=== PATIENT | female | born 1995 | race Caucasian/White ===

== ENCOUNTER 2023-05-22 17:06 | Observation (INO) | payer OTHER, SELFPAY ==
[2023-05-22 17:34] VITALS: BMI 30.1
[2023-05-22 17:35] VITALS: BP 92/48
[2023-05-22 17:54] LABS: Urine Albumin Trace (Neg - Trace); Urine Bilirubin Negative (Negative); Urine Character Slightly Cloudy (Clear); Urine Color Yellow; Urine Glucose Negative (Negative); Urine Ketone Negative (Negative); Urine Leukocyte 2+ (Negative); Urine Nitrite Negative (Negative); Urine Occult Blood Negative (Negative); Urine Specific Gravity 1.015 (<1.030); Urine Urobilinogen Negative (Neg - 1+)
[2023-05-22 17:59] LABS: % Basophils 0.2 % (0-2); % Eosinophils 1.5 % (0-6); % Immature Granulocytes 1.1 % (0-0.5); % Lymphocytes 15.8 % (20.5-51.1); % Monocytes 8.9 % (1.7-9.3); % Neutrophils 72.5 % (42.2-75.2); Absolute Eosinophils 0.2 10^3/uL (0-0.7); Absolute Immature Granulocytes 0.1 10^3/uL (0-0.05); Absolute Monocytes 1.1 10^3/uL (0.1-0.6); Hematocrit 28.1 % (37.0-47.0); Hemoglobin 9.8 g/dL (12.0-16.0); Mean Corp Hgb Conc. 34.9 g/dL (33.0-37.0); Mean Corpuscular Hgb 29.9 pg (27.0-31.0); Mean Corpuscular Volume 85.7 fL (81.0-99.0); Mean Platelet Volume 9.3 fL (7.4-10.4); Nucleated Red Blood Cells % 0 %; Platelet Count 254 10^3/uL (130-400); Red Blood Cell Count 3.28 10^6/uL (4.20-5.40); Red Cell Dist. Width 13.2 % (11.5-14.5); White Blood Cell Count 12.4 10^3/uL (4.8-10.8)
[2023-05-22 18:03] LABS: Urine Squamous Cell >30 /LPF (Few)
[2023-05-22 18:04] LABS: Urine Bacteria Few (Negative); Urine Red Blood Cell 0-2 /HPF (0-2)
[2023-05-22 18:38] LABS: ALT (SGPT) 15 U/L (0-35); AST (SGOT) 25 U/L (14-36); Albumin 3.3 g/dl (3.5-5.0); Alkaline Phosphatase 83 U/L (38-126); Blood Urea Nitrogen 11 mg/dl (7-17); Calcium 8.6 mg/dl (8.4-10.2); Carbon Dioxide 24 mmol/L (22-30); Chloride 106 mmol/L (98-107); Estimated Creatinine Clearance > 125 ml/min; Glucose 69 mg/dl (70-99); Potassium 3.9 mmol/L (3.5-5.1); Sodium 133 mmol/L (135-145); Total Bilirubin 0.4 mg/dl (0.2-1.3); Uric Acid 4.9 mg/dl (2.5-6.2); eGFR > 60.00
[2023-05-22 19:08] LABS: Protein/creatinine Ratio 0.2; Urine Protein 14 mg/dl
== END 2023-05-22 19:46 | disposition home or self-care (01) ==
LOC: LDRP 17:06
PROVIDERS: ADMITTING PHYSICIAN Obstetrics & Gynecology
DX: R51.9 Headache, unspecified (principal); R60.9 Edema, unspecified; J45.909 Unspecified asthma, uncomplicated; O99.513 Diseases of the respiratory system complicating pregnancy, third trimester; Z3A.32 32 weeks gestation of pregnancy; Z88.0 Allergy status to penicillin; Z88.2 Allergy status to sulfonamides
CPT/HCPCS: 80053; 81003; 81015; 82570; 84156; 84550; 85025; 86850; 86900; 86901; G0378

== ENCOUNTER 2023-06-10 15:01 | Observation (INO) | payer OTHER, SELFPAY ==
[2023-06-10 15:18] VITALS: BP 127/53; BMI 30.1
[2023-06-10 17:54] LABS: Urine Albumin Negative (Neg - Trace); Urine Bilirubin Negative (Negative); Urine Character Clear (Clear); Urine Color Yellow; Urine Glucose Negative (Negative); Urine Ketone Negative (Negative); Urine Leukocyte Trace (Negative); Urine Nitrite Negative (Negative); Urine Occult Blood Negative (Negative); Urine Specific Gravity 1.015 (<1.030); Urine Urobilinogen Negative (Neg - 1+)
[2023-06-10 17:55] LABS: % Basophils 0.2 % (0-2); % Eosinophils 0.9 % (0-6); % Immature Granulocytes 1.2 % (0-0.5); % Monocytes 9.2 % (1.7-9.3); % Neutrophils 74.5 % (42.2-75.2); Absolute Eosinophils 0.1 10^3/uL (0-0.7); Absolute Immature Granulocytes 0.2 10^3/uL (0-0.05); Absolute Lymphocytes 1.8 10^3/uL (1.2-3.4); Absolute Monocytes 1.2 10^3/uL (0.1-0.6); Absolute Neutrophils 9.6 10^3/uL (1.4-6.5); Hematocrit 28.5 % (37.0-47.0); Mean Corp Hgb Conc. 35.1 g/dL (33.0-37.0); Mean Corpuscular Hgb 29.5 pg (27.0-31.0); Mean Corpuscular Volume 84.1 fL (81.0-99.0); Nucleated Red Blood Cells % 0 %; Red Blood Cell Count 3.39 10^6/uL (4.20-5.40); Red Cell Dist. Width 13.2 % (11.5-14.5); White Blood Cell Count 12.9 10^3/uL (4.8-10.8)
[2023-06-10 18:08] LABS: Urine Amorphous Seen; Urine Bacteria Few (Negative); Urine Mucus Few; Urine Red Blood Cell 0-2 /HPF (0-2)
[2023-06-10] MEDS: MACROBID 100 MG PO (20:13)
[2023-06-10] MEDS: NORMOSOL-R 1000 IV (20:13)
[2023-06-10 20:24] LABS: ALT (SGPT) 14 U/L (0-35); AST (SGOT) 22 U/L (14-36); Albumin 3.4 g/dl (3.5-5.0); Alkaline Phosphatase 113 U/L (38-126); Blood Urea Nitrogen 9 mg/dl (7-17); Calcium 9.8 mg/dl (8.4-10.2); Carbon Dioxide 20 mmol/L (22-30); Chloride 107 mmol/L (98-107); Estimated Creatinine Clearance > 125 ml/min; Glucose 91 mg/dl (70-99); Potassium 3.4 mmol/L (3.5-5.1); Sodium 133 mmol/L (135-145); Total Bilirubin 0.3 mg/dl (0.2-1.3); Total Protein 6.2 g/dl (6.3-8.2); eGFR > 60.00
== END 2023-06-10 21:18 | disposition home or self-care (01) ==
LOC: LDRP 15:01
PROVIDERS: ADMITTING PHYSICIAN Obstetrics & Gynecology
DX: O26.853 Spotting complicating pregnancy, third trimester (principal); O26.893 Other specified pregnancy related conditions, third trimester; R10.9 Unspecified abdominal pain; Z3A.35 35 weeks gestation of pregnancy
CPT/HCPCS: 76770; 80053; 81003; 81015; 85025; 87086; G0378

== ENCOUNTER 2023-06-18 17:22 | Observation (INO) | payer OTHER, SELFPAY ==
[2023-06-18 17:43] VITALS: BP 123/72; BMI 31.2
[2023-06-18 18:36] LABS: Urine Albumin Negative (Neg - Trace); Urine Bilirubin Negative (Negative); Urine Character Clear (Clear); Urine Color Yellow; Urine Glucose Negative (Negative); Urine Ketone Trace (Negative); Urine Leukocyte 1+ (Negative); Urine Nitrite Negative (Negative); Urine Occult Blood Negative (Negative); Urine Urobilinogen Negative (Neg - 1+)
[2023-06-18 18:44] LABS: Urine Red Blood Cell None Seen /HPF (0-2); Urine Squamous Cell >30 /LPF (Few)
[2023-06-18 18:50] LABS: ALT (SGPT) 14 U/L (0-35); AST (SGOT) 28 U/L (14-36); Albumin 3.8 g/dl (3.5-5.0); Alkaline Phosphatase 119 U/L (38-126); Blood Urea Nitrogen 12 mg/dl (7-17); Calcium 9.1 mg/dl (8.4-10.2); Carbon Dioxide 20 mmol/L (22-30); Chloride 105 mmol/L (98-107); Estimated Creatinine Clearance > 125 ml/min; Glucose 86 mg/dl (70-99); Potassium 4.2 mmol/L (3.5-5.1); Sodium 133 mmol/L (135-145); Total Bilirubin 0.4 mg/dl (0.2-1.3); Total Protein 6.8 g/dl (6.3-8.2); eGFR > 60.00
[2023-06-18 18:55] LABS: Hematocrit 30.8 % (37.0-47.0); Hemoglobin 10.5 g/dL (12.0-16.0); Mean Corp Hgb Conc. 34.1 g/dL (33.0-37.0); Mean Corpuscular Hgb 29.2 pg (27.0-31.0); Mean Corpuscular Volume 85.6 fL (81.0-99.0); Platelet Count 255 10^3/uL (130-400); Red Cell Dist. Width 13.6 % (11.5-14.5); White Blood Cell Count 13.7 10^3/uL (4.8-10.8)
[2023-06-18 19:00] LABS: Protein/creatinine Ratio 0.1; Urine Protein 12 mg/dl
== END 2023-06-18 19:45 | disposition home or self-care (01) ==
LOC: LDRP 17:22
PROVIDERS: ADMITTING PHYSICIAN Obstetrics & Gynecology; FAMILY PHYSICIAN Obstetrics & Gynecology
DX: H53.8 Other visual disturbances (principal); N80.9 Endometriosis, unspecified; Z3A.36 36 weeks gestation of pregnancy; J45.909 Unspecified asthma, uncomplicated; R60.0 Localized edema; O99.513 Diseases of the respiratory system complicating pregnancy, third trimester; O99.353 Diseases of the nervous system complicating pregnancy, third trimester; G43.909 Migraine, unspecified, not intractable, without status migrainosus; J30.2 Other seasonal allergic rhinitis; Z88.0 Allergy status to penicillin; Z88.2 Allergy status to sulfonamides; Z91.040 Latex allergy status; Z87.442 Personal history of urinary calculi
CPT/HCPCS: 80053; 81003; 81015; 82570; 84156; 85027; 86850; 86900; 86901; G0378

== ENCOUNTER 2023-06-24 06:46 | Observation (INO) | payer OTHER, SELFPAY ==
[2023-06-24 07:02] VITALS: BP 123/62; BMI 31.2
== END 2023-06-24 08:05 | disposition home or self-care (01) ==
LOC: LDRP 06:46
PROVIDERS: ADMITTING PHYSICIAN Obstetrics & Gynecology; ATTENDING PHYSICIAN Obstetrics & Gynecology
DX: O47.1 False labor at or after 37 completed weeks of gestation (principal); Z3A.37 37 weeks gestation of pregnancy; Z88.0 Allergy status to penicillin; Z88.2 Allergy status to sulfonamides; Z91.040 Latex allergy status; Z87.442 Personal history of urinary calculi
CPT/HCPCS: G0378

== ENCOUNTER 2023-07-14 19:04 | Inpatient (IN) | payer OTHER, SELFPAY ==
[2023-07-14 19:44] VITALS: BP 125/71; BMI 31.9
[2023-07-14 21:07] LABS: % Basophils 0.2 % (0-2); % Immature Granulocytes 0.7 % (0-0.5); % Lymphocytes 17.3 % (20.5-51.1); % Monocytes 7.5 % (1.7-9.3); % Neutrophils 73.3 % (42.2-75.2); Absolute Eosinophils 0.1 10^3/uL (0-0.7); Absolute Immature Granulocytes 0.1 10^3/uL (0-0.05); Absolute Lymphocytes 2.1 10^3/uL (1.2-3.4); Absolute Monocytes 0.9 10^3/uL (0.1-0.6); Absolute Neutrophils 8.8 10^3/uL (1.4-6.5); Hematocrit 32.6 % (37.0-47.0); Hemoglobin 11.2 g/dL (12.0-16.0); Mean Corp Hgb Conc. 34.4 g/dL (33.0-37.0); Mean Corpuscular Hgb 29.4 pg (27.0-31.0); Mean Corpuscular Volume 85.6 fL (81.0-99.0); Mean Platelet Volume 9.8 fL (7.4-10.4); Nucleated Red Blood Cells % 0 %; Platelet Count 242 10^3/uL (130-400); Red Blood Cell Count 3.81 10^6/uL (4.20-5.40); Red Cell Dist. Width 14.1 % (11.5-14.5)
[2023-07-14] MEDS: CYTOTEC 25 MICROGRAM VAG (21:48)
[2023-07-15] MEDS: LR 1000 IV ×3 (02:09→11:50)
[2023-07-15] MEDS: PHENERGAN 50.5 MG IV (03:35)
[2023-07-15] MEDS: MORPHINE SULFATE 2 MG IV (03:35)
[2023-07-15] MEDS: SUBLIMAZE 100 MCG EPIDURAL (04:18)
[2023-07-15] MEDS: FENTANYL/BUPIVACAINE 100 EPIDURAL ×3 (04:18→19:55)
[2023-07-15] MEDS: PITOCIN 30 UNITS/NSS 500 ML IV (15:45)
[2023-07-16] MEDS: PITOCIN 30 UNITS/NSS 500 ML IV (01:09)
[2023-07-16] MEDS: MOTRIN 600 MG PO ×3 (03:26→17:31)
[2023-07-16] MEDS: ZYRTEC 10 MG PO (07:56)
[2023-07-16] MEDS: SENOKOT-S 1 TABLET PO (07:56)
[2023-07-16] MEDS: TYLENOL 650 MG PO ×3 (07:56→17:28)
[2023-07-16] MEDS: PRENATAL PLUS 1 TABLET PO (07:56)
[2023-07-17] MEDS: MOTRIN 600 MG PO ×4 (00:32→22:14)
[2023-07-17 05:22] LABS: Hematocrit 24.6 % (37.0-47.0); Hemoglobin 8.2 g/dL (12.0-16.0)
[2023-07-17] MEDS: TYLENOL 650 MG PO ×2 (06:22→13:39)
[2023-07-17] MEDS: SENOKOT-S 1 TABLET PO (09:28)
[2023-07-17] MEDS: PRENATAL PLUS 1 TABLET PO (09:28)
[2023-07-17] MEDS: ZYRTEC 10 MG PO (09:28)
[2023-07-17 14:53] LABS: Syphilis/T. pallidum Ab Reflex Negative (Negative)
[2023-07-17] MEDS: FEOSOL 325 MG PO (20:03)
[2023-07-18] MEDS: MOTRIN 600 MG PO ×2 (05:00→11:14)
[2023-07-18] MEDS: ZYRTEC 10 MG PO (09:30)
[2023-07-18] MEDS: SENOKOT-S 1 TABLET PO (09:30)
[2023-07-18] MEDS: PRENATAL PLUS 1 TABLET PO (09:30)
[2023-07-18] MEDS: FEOSOL 325 MG PO (09:30)
== END 2023-07-18 13:00 | disposition home or self-care (01) | DRG 768 ==
LOC: LDRP 19:04
PROVIDERS: Obstetrics & Gynecology; ADMITTING PHYSICIAN Obstetrics & Gynecology
PROC: 3E0P7VZ Introduction of Hormone into Female Reproductive, Via Natural or Artificial Opening (ICD-10-PCS; 2023-07-14)
PROC: 0DQR0ZZ Repair Anal Sphincter, Open Approach (ICD-10-PCS; 2023-07-16)
PROC: 10E0XZZ Delivery of Products of Conception, External Approach (ICD-10-PCS; 2023-07-16)
DX: O48.0 Post-term pregnancy (principal); Z37.0 Single live birth; O70.20 Third degree perineal laceration during delivery, unspecified; Z3A.40 40 weeks gestation of pregnancy; Z91.040 Latex allergy status; Z88.0 Allergy status to penicillin; Z88.2 Allergy status to sulfonamides; Z91.048 Other nonmedicinal substance allergy status; N80.9 Endometriosis, unspecified; Z87.442 Personal history of urinary calculi; J45.909 Unspecified asthma, uncomplicated; O99.52 Diseases of the respiratory system complicating childbirth; G43.909 Migraine, unspecified, not intractable, without status migrainosus; O99.02 Anemia complicating childbirth; D64.9 Anemia, unspecified; O42.02 Full-term premature rupture of membranes, onset of labor within 24 hours of rupture; O66.0 Obstructed labor due to shoulder dystocia
CPT/HCPCS: 88307; 85014; 85018; 85025; 86780; 86850; 86900; 86901

== ENCOUNTER → 2023-08-24 16:54 | Outpatient (REF) | payer OTHER, SELFPAY | LOC: REG 16:54 | PROVIDERS: ATTENDING PHYSICIAN Obstetrics & Gynecology | DX: A04.72 Enterocolitis due to Clostridium difficile, not specified as recurrent (principal) | CPT/HCPCS: 87324; 87449 ==

== ENCOUNTER 2023-09-23 14:08 | Day surgery (SDC) | payer OTHER, SELFPAY ==
[2023-09-23 13:50] VITALS: BMI 27.1
[2023-09-23 13:51] VITALS: BP 112/50
[2023-09-23 15:45] VITALS: BP 102/53
[2023-09-23 16:00] VITALS: BP 112/62
[2023-09-23 16:15] VITALS: BP 108/64
== END 2023-09-23 16:25 | disposition home or self-care (01) ==
LOC: GI 14:08
PROVIDERS: ATTENDING PHYSICIAN Surgery
DX: K62.89 Other specified diseases of anus and rectum (principal); R15.9 Full incontinence of feces
CPT/HCPCS: 45330

== ENCOUNTER 2023-09-29 06:13 | Day surgery (SDC) | payer OTHER, SELFPAY ==
[2023-09-29] VITALS (13 sets, daily range): BP systolic 92–113; BP diastolic 44–62; BMI 27.1; BMI 27.3
[2023-09-29] MEDS: NORMOSOL-R 1000 IV ×4 (07:05→18:14)
[2023-09-29] MEDS: ZOFRAN 4 MG IV (09:17)
[2023-09-29] MEDS: DILAUDID 0.5 MG IV ×2 (09:21→11:45)
--- NOTE | 2023-09-29 09:21 | W.SUR.POST ---
Surgical Immediate Post Op
Note
Pre Op Diagnosis:
1. Fecal incontinence
2. 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
3. wound infection
4. Rectocele
Post Op Diagnosis:
1. Fecal incontinence
2. 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
3. wound infection
4. Rectocele
Procedure Performed: Sphincteroplasty, posterior colporrhaphy, perineoplasty
Primary Surgeon: Williams Pérez MD
Secondary Surgeons: Emmanuel Felipe MD
Anesthesia: General anesthesia with ET tube
Estimated Blood Loss: 200 cc
Complications: None
--- NOTE | 2023-09-29 09:25 | OR.RPT ---
Operative Report
Operative Report
PREOPERATIVE DIAGNOSIS:
1.�Fecal Incontinence
2. History of obstetric anal sphincter injury (3rd degree perineal laceration)
3. Perineal wound infection and breakdown
4. Rectocele
POSTOPERATIVE DIAGNOSIS:
1.�Fecal Incontinence
2. History of obstetric anal sphincter injury (3rd degree perineal laceration)
3. Perineal wound infection and breakdown
4. Rectocele
PROCEDURE:
1. Sphincteroplasty
2. Posterior colporrhaphy with perineoplasty
ASSISTANTS:� Emmanuel Felipe MD
ANESTHESIA:� General anesthesia
ESTIMATED BLOOD LOSS:� 200 cc
SPECIMENS:� None
COMPLICATIONS:� None
FINDINGS:� Vaginal and rectal exam confirmed minimal perineal body with large anterior external anal sphincter defect
INDICATIONS:� Patient is a 28 yo woman with a 3rd degree perineal laceration from obstretric truama. She developed a wound infection and treated with oral antibiotics. Subsequently developed solid and loose stool fecal incontinence. Patient is
bothered by her symptoms and desires surgery. Endoanal ultrasound confirmed a 90 degree defect in the external anal sphincter.
PROCEDURE:� On the day of surgery the patient was identified in the preoperative waiting area.� Consents were again reviewed.� The patient was then taken to the operating room.� Pneumatic compression devices were placed on her lower extremities
bilaterally for DVT prophylaxis.� Gentamicin 100mg, Clindamycin 900mg and metronidazole 500mg IV was given for antibiotic prophylaxis.� General anesthesia was induced without difficulty.� Time out was taken to identify the patient and procedure.�
The patient was placed in the dorsal lithotomy position and prepped and draped in the usual fashion.� Yee catheter was placed in the bladder to drain it.
The posterior vaginal mucosa and perineum skin were infiltrated with 1% lidocaine with 1:100,000 epinephrine. A transverse perineal skin incision was
mad with a scalpel. The posterior vaginal mucosa was then opened up in the midline, going from the introitus toward the apex using Metzenbaum scissors.� The posterior vaginal mucosa was then dissected off the underlying rectovaginal fascia
bilaterally out to the level of the lateral sulci. The Allis clamp was used to grasp the right end of the external anal sphincter which was confirmed with palpation. The scissors were used to dissect the EAS capsule free from the underlying
connective tissue. Adequate mobility of the sphincter was confirmed. This was repeated on the left side to allow for a 2 cm region of overlapping sphincter. Next, the #2-0 PDS in four vertical mattress sutures were used to complete the
sphincteroplasty. Irrigation with normal saline was completed. The apical edge of the rectovaginal fascia was identified and plicated in the midline in three layers from deep to superficial with #2-0 PDS.�Interrupted suture of #2-0 PDS were also
used to plicate the transverse peritoneal and bulbospongiosus muscles in the midline to reconstruct the perineal body.� Excess vaginal mucosa was trimmed.� The vaginal mucosa was approximated with #2-0 Vicryl in a running fashion.� The perineal body
was superficially reconstructed with #2-0 Vicryl in interrupted fashion. The mucosa of the perineum was reapproximated with #2-0 Vicryl in interrupted fashion. Rectal exam revealed no stitches. Vaginal packing was placed.
Sponge, lap and needle counts were correct x 2.� I, Dr. Pérez was scrubbed and present throughout the procedure.� The patient was awaked and sent to the PACU in stable condition.
[2023-09-29] MEDS: BENADRYL 25 MG IV (10:01)
[2023-09-29] MEDS: TORADOL 15 MG IV ×3 (10:06→22:00)
--- NOTE | 2023-09-29 15:25 | CM ---
Met with pt at bedside
Lives with her and 2 month old son in an apartment
Independent, cares for son, driving
DME - none
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
Has ride at d/c
PCP - Dr Nakia Ragsdale
Pharm - [facility]
CM will follow for d/c needs
Plan - anticipate home no needs
[2023-09-29] MEDS: ROXICODONE 5 MG PO (16:48)
[2023-09-29] MEDS: TYLENOL 650 MG PO ×2 (18:06→22:27)
[2023-09-29] MEDS: FLAGYL 500 MG PO (20:01)
[2023-09-29] MEDS: COLACE 100 MG PO (20:01)
[2023-09-29] MEDS: MYLICON 80 MG PO (20:01)
[2023-09-30] MEDS: NORMOSOL-R 1000 IV (01:07)
[2023-09-30] MEDS: TORADOL 15 MG IV (03:56)
[2023-09-30 04:02] VITALS: BP 100/50
[2023-09-30] MEDS: ROXICODONE 5 MG PO (04:17)
[2023-09-30 06:06] LABS: Hematocrit 29.4 % (37.0-47.0); Mean Corpuscular Hgb 27.3 pg (27.0-31.0); Mean Corpuscular Volume 80.3 fL (81.0-99.0); Mean Platelet Volume 9.3 fL (7.4-10.4); Platelet Count 302 10^3/uL (130-400); Red Blood Cell Count 3.66 10^6/uL (4.20-5.40); Red Cell Dist. Width 12.3 % (11.5-14.5); White Blood Cell Count 10.1 10^3/uL (4.8-10.8)
--- NOTE | 2023-09-30 06:26 | PTCARENOTE ---
RN removed todd and vaginal packing at 0500 09/30/23.
[2023-09-30 06:35] LABS: Blood Urea Nitrogen 12 mg/dl (7-17); Carbon Dioxide 24 mmol/L (22-30); Chloride 108 mmol/L (98-107); Estimated Creatinine Clearance 112 ml/min; Potassium 4.1 mmol/L (3.5-5.1); Sodium 138 mmol/L (135-145)
[2023-09-30 07:52] VITALS: BP 83/54
[2023-09-30] MEDS: FLAGYL 500 MG PO (08:20)
[2023-09-30] MEDS: COLACE 100 MG PO (08:20)
[2023-09-30] MEDS: ZYRTEC 10 MG PO (08:20)
--- NOTE | 2023-09-30 09:00 | W.PN.CRS1 ---
Today's Communication / Plan
-
Void trial
Bowel regimen
Likely DC today
Assessment/Plan
-
POD 1 overlapping sphincteroplasty with perineoplasty by Dr. Pérez
AFVSS
WBC 10.1, Hb 10.0
�Continue regular diet
� Continue pain control with Tylenol, oxycodone, Dilaudid as needed
� Continue Colace twice daily, MiraLAX as needed (instructed patient to take MiraLAX if no BMs in 24 hours)
� Yee removed this a.m., monitor for void
� Care per Dr. Pérez, likely DC today
Subjective Data
Subjective Data
Date of Service: September 30, 2023
No overnight events.
Pain controlled.
Denies nausea/vomiting. Tolerating diet.
+flatus -BMs -void, on void trial
Pt is OOB.
Objective Data
-
Vital Signs
Temp Pulse Resp BP Pulse Ox
97.5 F 55 16 83/54 99
09/30/23 07:52 09/30/23 07:52 09/30/23 07:52 09/30/23 07:52 09/30/23 04:02
Intake & Output
09/29/23 09/30/23 10/01/23
06:59 06:59 06:59
Intake Total 3658 / 3658
Output Total 6435 / 2775
Balance 883 / 883
Intake:
Oral fluids 282 / 282
Amount of oral supplement(s) 120 / 120
consumed
IV fluids (Total) 3256 / 3256
Normosol 500 / 500
Output:
Urine, Yee 1457 / 2775
Lab Results
09/30/23 05:49
09/30/23 05:49
Physical Exam
-
General: No Acute Distress and AOx3
HEENT: Grossly Normal
Abdomen: Soft, Non Distended, Non Tender, No Guarding and No Rebound
Skin: Warm and Dry
--- NOTE | 2023-09-30 09:11 | PTCARENOTE ---
Received pt AAOx3 lungs clear apical regular 66bpm abdominal soft nontender BSX4, INT D/I Dr. Pérez in room and examined vaginal area. Positive Pedal pulses x4. Pt oob voided 400ml clear yellow urine. Suzie Pads changed. Pt offers no complaints at
this time,pt eating breakfast.
[2023-09-30] MEDS: TYLENOL 650 MG PO (10:01)
--- NOTE | 2023-09-30 10:04 | PTCARENOTE ---
BP 111/52 pulse 62, INT D/C catheter intact, pt discharged via wheelchair
== END 2023-09-30 10:10 | disposition home or self-care (01) ==
LOC: SDS 06:13
PROVIDERS: ATTENDING PHYSICIAN Obstetrics & Gynecology
DX: O86.01 Infection of obstetric surgical wound, superficial incisional site (principal); R15.9 Full incontinence of feces; N81.6 Rectocele
CPT/HCPCS: 57250; 46750; 80051; 82565; 84520; 85027; J1580

== ENCOUNTER → 2023-10-05 16:54 | Outpatient (REF) | payer OTHER, SELFPAY | LOC: REG 16:54 | PROVIDERS: ATTENDING PHYSICIAN Obstetrics & Gynecology | DX: A04.72 Enterocolitis due to Clostridium difficile, not specified as recurrent (principal) | CPT/HCPCS: 87324; 87449 ==

== ENCOUNTER → 2023-10-27 09:35 | Outpatient (REF) | payer OTHER, SELFPAY | LOC: REG 09:35 | PROVIDERS: ATTENDING PHYSICIAN Obstetrics & Gynecology | DX: N39.0 Urinary tract infection, site not specified (principal); A04.72 Enterocolitis due to Clostridium difficile, not specified as recurrent | CPT/HCPCS: 87086; 87324; 87449 ==

== ENCOUNTER 2023-12-01 15:31 | Outpatient (RCR) | payer OTHER, SELFPAY | END 2023-12-01 23:59 | disposition home or self-care (01) | LOC: RPT 15:31 | PROVIDERS: ATTENDING PHYSICIAN Obstetrics & Gynecology | DX: R10.2 Pelvic and perineal pain (principal); R15.2 Fecal urgency; M62.81 Muscle weakness (generalized); Z73.6 Limitation of activities due to disability | CPT/HCPCS: 97163; 97530 ==

== ENCOUNTER 2023-12-31 16:10 | Outpatient (RCR) | payer OTHER, SELFPAY | END 2023-12-31 23:59 | disposition home or self-care (01) | LOC: RPT 16:10 | PROVIDERS: ATTENDING PHYSICIAN Obstetrics & Gynecology | DX: R10.2 Pelvic and perineal pain (principal); R15.2 Fecal urgency; M62.81 Muscle weakness (generalized); Z73.6 Limitation of activities due to disability | CPT/HCPCS: 97110; 97112; 97140; 97530 ==

== ENCOUNTER 2024-01-20 18:47 | Emergency (ER) | payer OTHER, SELFPAY ==
[2024-01-20 18:55] VITALS: BP 108/56
[2024-01-20 19:21] LABS: % Basophils 0.5 % (0-2); % Eosinophils 1.9 % (0-6); % Immature Granulocytes 0.1 % (0-0.5); % Lymphocytes 36.1 % (20.5-51.1); % Monocytes 6.9 % (1.7-9.3); % Neutrophils 54.5 % (42.2-75.2); Absolute Eosinophils 0.2 10^3/uL (0-0.7); Absolute Monocytes 0.6 10^3/uL (0.1-0.6); Absolute Neutrophils 4.5 10^3/uL (1.4-6.5); Hematocrit 39.5 % (37.0-47.0); Hemoglobin 12.5 g/dL (12.0-16.0); Mean Corp Hgb Conc. 31.6 g/dL (33.0-37.0); Mean Corpuscular Hgb 25.3 pg (27.0-31.0); Mean Corpuscular Volume 79.8 fL (81.0-99.0); Nucleated Red Blood Cells % 0 %; Platelet Count 362 10^3/uL (130-400); Red Blood Cell Count 4.95 10^6/uL (4.20-5.40); Red Cell Dist. Width 13.4 % (11.5-14.5); White Blood Cell Count 8.3 10^3/uL (4.8-10.8)
[2024-01-20 19:30] LABS: Urine Albumin Negative (Neg - Trace); Urine Bilirubin Negative (Negative); Urine Character Slightly Cloudy (Clear); Urine Color Yellow; Urine Glucose Negative (Negative); Urine Ketone Trace (Negative); Urine Leukocyte Trace (Negative); Urine Nitrite Negative (Negative); Urine Occult Blood Trace (Negative); Urine Urobilinogen Negative (Neg - 1+); Urine pH 6.5 (5.0-9.0)
[2024-01-20 19:33] LABS: ALT (SGPT) 21 U/L (0-35); AST (SGOT) 24 U/L (14-36); Albumin 4.9 g/dl (3.5-5.0); Alkaline Phosphatase 90 U/L (38-126); Blood Urea Nitrogen 15 mg/dl (7-17); Calcium 9.6 mg/dl (8.4-10.2); Carbon Dioxide 28 mmol/L (22-30); Chloride 100 mmol/L (98-107); Glucose 81 mg/dl (70-99); Lipase 122 U/L (23-300); Sodium 140 mmol/L (135-145); Total Bilirubin 0.6 mg/dl (0.2-1.3); Total Protein 7.5 g/dl (6.3-8.2); eGFR > 60.00
[2024-01-20 19:55] LABS: Urine Squamous Cell >30 /LPF (Few)
[2024-01-20 19:56] LABS: Urine Red Blood Cell 0-2 /HPF (0-2)
[2024-01-20 19:57] LABS: Urine Bacteria Few (Negative)
[2024-01-20 21:11] VITALS: BP 98/53
[2024-01-20 21:13] VITALS: BMI 28.2
[2024-01-20 21:21] LABS: HCG, Serum Qualitative Screen Negative
--- NOTE | 2024-01-20 21:22 | ED.GENMED ---
History of Present Illness
General
Chief Complaint: Abdominal Pain
Source: patient
Exam Limitations: none
Time Seen by Provider: 01/20/24 21:03
History of Present Illness
History of Present Illness:
This is a 29 year old female that comes in with c/o RLQ pain. States that this started around 12 noon and she pushed throw work. States that after picking up her son from day care she called her and said that she needed to come to the
hospital. Sates that the pain has continued to get worse all day. States that she is nauseated and has been having issues for a while with diarrhea. States that she gets dizzy with the pain and that the pain goes around to the back. Denies any
fever, chills, chest pain, SOB, vomiting, headache, urinary burning.
Past History
Past History
ED Past Medical History: Asthma and Other (Migraines, Anemia, Diarrhea, Post depression, Kidney stones); Negative HTN, Hypercholesterolemia or NIDDM
ED Past Surgical History: Tonsilectomy and Other (Reconstruction surgery of rectum and vaginal area due to delivery tare)
Social History
Tobacco: Non-smoker
Alcohol: None
Personal:
Living: with family
Employment: Employed
Review of Systems
Review of Systems
All Other Systems: ROS reviewed and negative except as documented in HPI and ROS
Constitutional: Reports no symptoms; Denies fever or chills
EENT: Reports no symptoms
Respiratory: Reports no symptoms; Denies cough or trouble breathing
Cardiac: Reports no symptoms; Denies chest pain
ABD/GI: Reports abdominal pain, nausea and diarrhea; Denies vomiting
: Reports no symptoms; Denies dysuria, frequency or urgency
Musculoskeletal: Reports no symptoms
Skin: Reports no symptoms
Neurological: Reports no symptoms
Psychiatric: Reports no symptoms
Phy Exam
General Physical Exam
General Presentation: well appearing and no apparent distress
General age: appears stated age
General Skin: warm and dry
General Habitus: normal
General Mental: alert
General Hydration: appears well hydrated
ENT Exam
ENT Exam: TM's normal, pharynx normal and neck supple
Eye Exam
Eye Exam: EOMI
Cardiovascular Exam
Cardiovascular Exam: no edema, no murmur, normal peripheral pulses and bradycardia
Pulmonary Exam
Pulmonary Exam: lungs clear, no respiratory distress, no rales, chest non tender, no crackles, no rhonchi, no wheezing and no cough
Gastrointestinal Exam
Gastrointestinal Exam: normal bowel sounds, soft, no organomegaly, no pulsatile mass, non distended and tender (RLQ tenderness with palpation)
Musculoskeletal Exam
Musculoskeletal Exam: full ROM and no edema
Skin Exam
Skin Exam: normal color, warm/dry, no rash and no petechia
Psychiatric Exam
Psychiatric Exam: normal mood/affect
Course
Orders/Labs/Results
Orders:
Orders
01/20/24 18:55
Test Result ONCE
01/20/24 19:04
Complete Blood Count/With Diff Urgent
Comprehensive Metabolic Panel Urgent
HCG, Serum Qualitative Screen Urgent
Comment: Notify provider if positive test present
Lipase Urgent
Urinalysis Reflex To Culture Urgent
Date Specimen was Collected: 01/20/24
Time Specimen was Collected: 18:55
Urine Microscopic Reflex Cult Urgent
01/20/24 21:21
CT Abd/pel W Iv And Oral Contr Urgent
Comment:
Reason For Exam: Right lower abd pain
0.9% Sodium Chloride 1000 ml [Nss] 1,000 ml IV BOLUS
Iohexol [Omnipaque] See Protocol PO NOW STA
US Pelvis Only (non-obstetric) Urgent
Comment:
Reason For Exam: right lower abd pain
01/20/24 21:22
Ketorolac [Toradol] 15 mg IV NOW STA
Abnormal Lab Results
01/20/24
19:04
MCV 79.8 L fL
(81.0-99.0)
MCH 25.3 L pg
(27.0-31.0)
MCHC 31.6 L g/dL
(33.0-37.0)
Urine Ketones Trace A
(Negative)
Ur Occult Blood Reflex Trace A
(Negative)
Leukocyte Esterase Rfl Trace A
(Negative)
Urine Bacteria (Reflex) Few A
(Negative)
01/20/24 19:04
01/20/24 19:04
Anemia, Urine negative for infection. Lipase normal at 122, HCG negative.
Vital Signs
Initial and Last Documented VS:
Initial Vital Signs
Temp Pulse Resp BP Pulse Ox
98.0 F 73 16 108/56 100
01/20/24 18:55 01/20/24 18:55 01/20/24 18:55 01/20/24 18:55 01/20/24 18:55
Last Documented Vital Signs
Temp Pulse Resp BP Pulse Ox
98.0 F 56 18 95/58 100
01/20/24 18:55 01/20/24 23:02 01/20/24 23:02 01/20/24 23:02 01/20/24 23:02
MDM/Problems Addressed
Differential Diagnosis Includes:
Ovarian cyst, Appendicitis, Bowel obstruction
MDM/Problems Addressed:
This is a 29 year old female that comes in with c/o RLQ pain that started around 12 noon. States that it has continued to get worse and goes around to the back.
WIll check labs. US and get CT scan. Will medicate for pain and give IV fluids.
Back into see patient. Explained that there is a simple cyst on the right but no free fluid. This most likely is not causing patient pain so will get CT scan to r/o appendicitis.
Back into see patient. Explained that her appendix is normal. There is slight hydronephrosis and hydroureter. Patient may have had a stone that she already passed as there are stones in the kidney's. Will discharge patient home.
Chronic conditions affecting care:
NA
Acute Exacerbation and/or Progression of Chronic Illness:
NA
*Radiology
Radiology exam reviewed: radiology read reviewed (US pelvis- Simple right ovarian cyst. CT night hawk-Normal gallblaadder. No biliary dilation. Minimal right hydronephrosis and proximal to mid right hydroureter without obstructing stone seen.
this may relate to a recently passed stone. There is a punctate 2mm nonobstructing stone present ), all reviewed NAD by ED Provider (CT cont- within bilateral kidneys. Bladder is normal. No left-sided Hydronephrosis. Uterus and left ovary are
unremarkable. Small dominant follicle within the right ovary measuring 2.0 X 1.8 cm. No free fluid. Mild to moderate stool present within the colon. NO evidence of bowel obstruction or bowel) and other (CT cont- wall thickening. Normal appendix.
Subcentimeter mesenteric lymph nodes, likely reactive. No free air. Lung bases are clear. )
*Pulse Oximetry
Patient hypoxic: no
*EKG
Interpreted by ED Provider?: NA
Rate: EKG- N/A
*Medical Service Technician Interpretation
Rate: Medical Service Technician- N/A
*Critical Care Note
Total Time (30-74mins, 75-104mins- exclusive of procedures): Not Applicable
ED Attending Note
-
Portions of this chart may have been created with voice recognition software.� Occasional wrong word or��sound alike� substitutions may have occurred due to the inherent limitations of voice recognition software.
Discharge Plan
Departure
Patient Disposition: Home (Routine Discharge)
Date of Disposition: 01/21/24
Time of Disposition: 00:08
Patient with high blood pressure during this ER visit?: No
Condition: Good
Covid-19: Not Applicable
Discharge Problem:
Right lower quadrant abdominal pain, Ovarian cyst
Instructions: Ovarian Cyst (DC), Abdominal Pain
Prescriptions:
No Action
cetirizine [Zyrtec] 10 mg Tablet
10 mg PO DAILY
fluticasone propion-salmeterol [Advair Diskus] 250-50 mcg/dose Blister With Device
1 inh INHALATION BID PRN (Reason: asthma)
acetaminophen 325 mg Tablet
650 mg PO Q4HPRN PRN (Reason: mild pain) Qty: 0 0RF
magnesium 200 mg Tablet
400 mg PO DAILY
Rx Instructions:
for migraines
loperamide 2 mg Capsule
2 mg PO Q4H PRN (Reason: diarrhea)
ondansetron HCl 4 mg Tablet
4 mg PO Q8H PRN (Reason: nausea)
albuterol sulfate 90 mcg/actuation Hfa Aerosol Inhaler
1 inh INHALATION PRN PRN (Reason: shortness of breath, wheezing)
Pre-Chen Multivitamins/Minerals
1 dose PO DAILY
Ubrelvy 50 mg Tablet
50 mg PO DAILY
metronidazole 500 mg Tablet
500 mg PO BID 7 Days Qty: 14 0RF
docusate sodium 100 mg Capsule
100 mg PO BID Qty: 60 0RF
simethicone 80 mg Tablet,Chewable
80 mg PO Q6HPRN PRN (Reason: gas) Qty: 20 0RF
oxycodone 5 mg Tablet
5 mg PO Q4HPRN PRN (Reason: Pain) Qty: 10 0RF
Referrals:
PRIVATE,PHYSICIAN [Family Provider] -
Activity Restrictions/Additional Instructions:
As discussed, your blood work shows your anemia, otherwise is normal. Your CT shows that you have slight Hydronephrosis and hydroureter so that you may have had a stone and already passed this as there is not stone seen. Your Pelvic Ultrasound shows
a small right ovarian cyst. Please use Tylenol or Ibuprofen for pain. Follow up with your BUNDLE PERSON for further evaluation. IF YOU HAVE INCREASED OR CHANGING PAIN, FEVER, OR ANY OTHER CONCERNS PLEASE RETURN TO THE EMERGENCY ROOM.
Interventions
Interventions:
*Risk Screen - Suicide Last Done: 01/20/24 18:55
*General Assessment Last Done: 01/20/24 21:12
*Neglect/Abuse Screening Last Done: 01/20/24 18:55
*ED COVID-19 Vaccine History Last Done: 01/20/24 21:12
ZJ-Iqpocd-[id number] Assessment Last Done: 01/20/24 21:12
Discharge Date and Time
Print Language: [place]
[2024-01-20] MEDS: OMNIPAQUE 50 ML PO (21:29)
[2024-01-20] MEDS: NSS 1000 IV (21:35)
[2024-01-20] MEDS: TORADOL 15 MG IV (21:35)
[2024-01-20 23:02] VITALS: BP 95/58
[2024-01-21 00:11] VITALS: BP 94/55
== END 2024-01-21 00:17 | disposition home or self-care (01) ==
LOC: EMR 18:47
PROVIDERS: Emergency Medicine; EMERGENCY PHYSICIAN Emergency Medicine
DX: N83.291 Other ovarian cyst, right side (principal); J45.909 Unspecified asthma, uncomplicated; D64.9 Anemia, unspecified; N13.30 Unspecified hydronephrosis
CPT/HCPCS: 99284; 96374; 96361; 74177; 76856; 80053; 81003; 81015; 83690; 84703; 85025; Q9967

== ENCOUNTER 2024-01-21 17:55 | Outpatient (RCR) | payer OTHER, SELFPAY | END 2024-01-21 23:59 | disposition home or self-care (01) | LOC: RPT 17:55 | PROVIDERS: ATTENDING PHYSICIAN Obstetrics & Gynecology | DX: R10.2 Pelvic and perineal pain (principal); R15.2 Fecal urgency; M62.81 Muscle weakness (generalized); Z73.6 Limitation of activities due to disability | CPT/HCPCS: 97110; 97140; 97530 ==

== ENCOUNTER 2024-02-15 12:22 | Outpatient (RCR) | payer OTHER, SELFPAY | END 2024-02-15 23:59 | disposition home or self-care (01) | LOC: RPT 12:22 | PROVIDERS: ATTENDING PHYSICIAN Obstetrics & Gynecology | DX: R10.2 Pelvic and perineal pain (principal); R15.2 Fecal urgency; M62.81 Muscle weakness (generalized); Z73.6 Limitation of activities due to disability | CPT/HCPCS: 97110; 97112; 97140; 97530 ==

== ENCOUNTER 2024-03-28 11:07 | Outpatient (RCR) | payer OTHER, SELFPAY | END 2024-03-28 23:59 | disposition home or self-care (01) | LOC: RPT 11:07 | PROVIDERS: ATTENDING PHYSICIAN Obstetrics & Gynecology | DX: R10.2 Pelvic and perineal pain (principal); R15.2 Fecal urgency; M62.81 Muscle weakness (generalized); Z73.6 Limitation of activities due to disability | CPT/HCPCS: 97014; 97110; 97112; 97140; 97530 ==

== ENCOUNTER 2024-04-19 17:58 | Outpatient (RCR) | payer OTHER, SELFPAY | END 2024-04-19 23:59 | disposition home or self-care (01) | LOC: RPT 17:58 | PROVIDERS: ATTENDING PHYSICIAN Obstetrics & Gynecology | DX: R10.2 Pelvic and perineal pain (principal); R15.2 Fecal urgency; M62.81 Muscle weakness (generalized); Z73.6 Limitation of activities due to disability | CPT/HCPCS: 97014; 97110; 97112; 97140; 97530 ==

== ENCOUNTER 2024-05-16 14:40 | Outpatient (RCR) | payer OTHER, SELFPAY | END 2024-05-16 23:59 | disposition home or self-care (01) | LOC: RPT 14:40 | PROVIDERS: ATTENDING PHYSICIAN Obstetrics & Gynecology | DX: R10.2 Pelvic and perineal pain (principal); R15.2 Fecal urgency; M62.81 Muscle weakness (generalized); Z73.6 Limitation of activities due to disability | CPT/HCPCS: 97110; 97112; 97140; 97530 ==

== ENCOUNTER 2024-06-14 19:11 | Outpatient (RCR) | payer OTHER, SELFPAY | END 2024-06-14 23:59 | disposition home or self-care (01) | LOC: RPT 19:11 | PROVIDERS: ATTENDING PHYSICIAN Obstetrics & Gynecology | DX: R10.2 Pelvic and perineal pain (principal); R15.2 Fecal urgency; M62.81 Muscle weakness (generalized); Z73.6 Limitation of activities due to disability | CPT/HCPCS: 97014; 97110; 97112; 97530 ==

== ENCOUNTER 2024-07-26 18:58 | Outpatient (RCR) | payer OTHER, SELFPAY | END 2024-07-26 23:59 | disposition home or self-care (01) | LOC: RPT 18:58 | PROVIDERS: ATTENDING PHYSICIAN Obstetrics & Gynecology | DX: R10.2 Pelvic and perineal pain (principal); R15.2 Fecal urgency; M62.81 Muscle weakness (generalized); Z73.6 Limitation of activities due to disability | CPT/HCPCS: 97014; 97110; 97112; 97140; 97530 ==

== ENCOUNTER 2024-08-23 18:00 | Outpatient (RCR) | payer OTHER, SELFPAY | END 2024-08-23 23:59 | disposition home or self-care (01) | LOC: RPT 18:00 | PROVIDERS: ATTENDING PHYSICIAN Obstetrics & Gynecology | DX: R10.2 Pelvic and perineal pain (principal); R15.2 Fecal urgency; M62.81 Muscle weakness (generalized); Z73.6 Limitation of activities due to disability | CPT/HCPCS: 97110; 97112; 97530 ==

== ENCOUNTER 2024-10-03 13:10 | Outpatient (RCR) | payer OTHER, SELFPAY | END 2024-10-03 16:00 | disposition home or self-care (01) | LOC: RPT 13:10 | PROVIDERS: ATTENDING PHYSICIAN Obstetrics & Gynecology | DX: R10.2 Pelvic and perineal pain (principal); R15.2 Fecal urgency; M62.81 Muscle weakness (generalized); Z73.6 Limitation of activities due to disability | CPT/HCPCS: 97112; 97140; 97530 ==